=== PATIENT | male | born 1955 | race African-American/Black ===

== ENCOUNTER 2023-01-12 19:38 | Emergency (ER) | payer OTHER ==
[~2023-01-12] VITALS: Ht 177.8 cm; Wt 108.0 kg
[2023-01-12] MEDS ORDERED: IPRATROPIUM BROMIDE (0.02%) 0.5MG/2.5ML NEB HHN STA (21:06)
[2023-01-12] MEDS ORDERED: PREDNISONE 20MG TABLET PO STA (21:06)
[2023-01-12 21:24] LABS: BASOPHILS % 0.4 % (0.0-2.0); EOSINOPHILS % 2.2 % (0.0-5.0); HEMATOCRIT. 44.7 % (42.0-52.0); HEMOGLOBIN. 15.2 g/dL (14.0-18.0); LYMPHOCYTES % 22.9 % (20.0-50.0); MEAN CORPUSCULAR HEMOGLOBIN 31.5 pg (28.0-32.0); MEAN CORPUSCULAR VOLUME 92.6 fL (80.0-94.0); MEAN PLATELET VOLUME 10.1 fl (7.4-10.4); MONOCYTES % 9.2 % (2.0-8.0); NEUTROPHILS % 65.3 % (40.0-76.0); PLATELET 182 x1000/uL (130-400); RED BLOOD CELL COUNT 4.82 mill/uL (4.7-6.1); RED CELL DISTRIBUTION WIDTH 13.8 % (11.6-14.6)
[2023-01-12 21:34] LABS: CHLORIDE 106 mEq/L (98-107)
[2023-01-12 21:55] VITALS: PULSE 72; RESP 20; O2SAT 98
[2023-01-12] MEDS: ALBUTEROL (0.083%) 2.5MG/3ML NEB HHN SCH ×3 (22:59→23:13)
[2023-01-13 01:00] VITALS: BP 126/54; PULSE 76; RESP 20; TEMP 98.6
[2023-01-13] MEDS ORDERED: BENZONATATE 100MG CAPSULE PO ONE (01:00)
[2023-01-13] MEDS ORDERED: BENZ200C52 MT (01:01)
[2023-01-13] MEDS ORDERED: P20 MT (01:01)
== END 2023-01-13 02:24 | disposition home or self-care (01) ==
LOC: ER 19:38 → CANBEDREQ 01-13 03:04
DX: J44.1 Chronic obstructive pulmonary disease with (acute) exacerbation (principal); E78.00 Pure hypercholesterolemia, unspecified; I10 Essential (primary) hypertension; F17.200 Nicotine dependence, unspecified, uncomplicated
CPT/HCPCS: 80053; 85025; 36415; 71045; 94640; 93005; 99285; J7512; Z7610 ×3

== ENCOUNTER 2023-09-18 18:23 | Emergency (ER) | payer OTHER ==
[~2023-09-18] VITALS: Ht 175.3 cm; Wt 100.0 kg
[~2023-09-18 18:23] MED LIST: BENZ200C52 MT; P20 MT
[2023-09-18] MEDS: ASPIRIN 81MG TABLET PO ONE (19:18)
[2023-09-18] MEDS: MAGNESIUM 2 G PREMIX 50 ML IV ONE (19:18)
[2023-09-18] MEDS: METHYLPREDNISOLONE SOD SUCC 125MG/2ML (ACT-O-VIAL) IV STA (19:18)
[2023-09-18 20:00] VITALS: TEMP 98.9
[2023-09-18 20:10] LABS: BASOPHILS % 0.4 % (0.0-2.0); EOSINOPHILS % 1.8 % (0.0-5.0); HEMATOCRIT. 44.5 % (42.0-52.0); HEMOGLOBIN. 14.9 g/dL (14.0-18.0); LYMPHOCYTES % 22.9 % (20.0-50.0); MEAN CORPUSCULAR HEMOGLOBIN 31.4 pg (28.0-32.0); MEAN CORPUSCULAR HGB CONC 33.5 g/dL (31.0-37.0); MEAN CORPUSCULAR VOLUME 93.8 fL (80.0-94.0); MEAN PLATELET VOLUME 8.6 fl (7.4-10.4); MONOCYTES % 9.7 % (2.0-8.0); NEUTROPHILS % 65.2 % (40.0-76.0); PLATELET 218 x1000/uL (130-400); RED BLOOD CELL COUNT 4.74 mill/uL (4.7-6.1); RED CELL DISTRIBUTION WIDTH 13.7 % (11.6-14.6); WHITE BLOOD COUNT 8.2 x1000/uL (4.5-11.0)
[2023-09-18 20:25] LABS: ALANINE AMINOTRANSFERASE 22 IU/L (10-49); ALBUMIN 4.4 g/dL (3.2-4.8); ASPARTATE AMINOTRANSFERASE 25 IU/L (<34); BILIRUBIN TOTAL 0.7 mg/dL (0.1-1.0); CALCIUM 9.4 mg/dL (8.7-10.4); CARBON DIOXIDE 27 mEq/L (21-32); CHLORIDE 105 mEq/L (98-107); CREATININE 0.7 mg/dL (0.6-1.3); GLUCOSE 108 mg/dL (70-105); POTASSIUM 3.5 mEq/L (3.5-5.1); PROTEIN TOTAL 7.2 g/dL (6.0-8.3); SODIUM 139 mEq/L (136-145); TROPONIN I HIGH SENSITIVITY 4 ng/L (3.0-53); UREA NITROGEN BLOOD 9 mg/dL (9-23)
[2023-09-18 22:18] VITALS: PULSE 76; RESP 20; O2SAT 98
[2023-09-18] MEDS ORDERED: ALBUTEROL (0.083%) 2.5MG/3ML NEB ONE (22:18)
[2023-09-18] MEDS ORDERED: IPRATROPIUM BROMIDE (0.02%) 0.5MG/2.5ML NEB ONE (22:18)
[2023-09-18] MEDS: IPRATROPIUM BROMIDE (0.02%) 0.5MG/2.5ML NEB HHN STA (22:18)
[2023-09-18] MEDS: ALBUTEROL (0.083%) 2.5MG/3ML NEB HHN STA (22:18)
[2023-09-19 02:33] VITALS: BP 135/72; PULSE 88; RESP 19
== END 2023-09-19 03:35 | disposition short-term general hospital (02) ==
LOC: ER 18:23
DX: J45.901 Unspecified asthma with (acute) exacerbation (principal); I10 Essential (primary) hypertension; Z20.822 Contact with and (suspected) exposure to COVID-19
CPT/HCPCS: 99285; 96365; 71045; 96375; 80053; 83880; 85025; 84484; 36415; 93005; 94644; 87426; J3475; J2930; 94640